=== PATIENT | male | born 1990 | race Caucasian/White ===

== ENCOUNTER 2017-08-19 14:17 | Emergency (ER) | payer OTHER ==
[~2017-08-19] VITALS: Ht 175.2 cm; Wt 63.5 kg
[2017-08-19] MEDS ORDERED: MEDROL DOSEPAK4 MG PO (16:02)
[2017-08-19] MEDS ORDERED: CYCLOBENZAPRINE5 M3 PO (16:02)
== END 2017-08-19 16:15 | disposition home or self-care (01) ==
LOC: ED 14:17
DX: M62.830 Muscle spasm of back (principal)

== ENCOUNTER 2018-01-05 11:46 | Emergency (ER) | payer SELFPAY ==
[~2018-01-05] VITALS: Ht 177.8 cm; Wt 70.8 kg
[~2018-01-05 11:46] MED LIST: CYCLOBENZAPRINE5 M3 PO; MEDROL DOSEPAK4 MG PO
[2018-01-05] MEDS ORDERED: ZYRTEC10 MG PO (12:31)
[2018-01-05] MEDS ORDERED: AMOXICILLIN500 M2 PO (12:31)
[2018-01-05] MEDS ORDERED: FLONASE ALLERG9.9 ML NAS (12:31)
== END 2018-01-05 12:47 | disposition home or self-care (01) ==
LOC: ED 11:46
DX: J01.90 Acute sinusitis, unspecified (principal); Z88.6 Allergy status to analgesic agent

== ENCOUNTER 2018-05-14 08:44 | Emergency (ER) | payer SELFPAY ==
[~2018-05-14] VITALS: Ht 170.1 cm; Wt 67.6 kg
[~2018-05-14 08:44] MED LIST changes: +AMOXICILLIN500 M2 PO; +FLONASE ALLERG9.9 ML NAS; +ZYRTEC10 MG PO
[2018-05-14 09:15] LABS: BILIRUBIN NEGATIVE (NEGATIVE); BLOOD NEGATIVE (NEGATIVE); CLARITY CLEAR (CLEAR); COLOR YELLOW (YELLOW); GLUCOSE NEGATIVE (NEGATIVE); KETONE NEGATIVE (NEGATIVE); LEUKO ESTERASE NEGATIVE (NEGATIVE); NITRITE NEGATIVE (NEGATIVE); UROBILINOGEN 0.2 E.U./dl (0.2-1.0)
[2018-05-14 09:16] LABS: BASO # 0.1 10*3/uL (0.0-0.1); EOS # 0.6 10*3/uL (0.0-0.4); EOS % 11.1 % (1.0-4.0); HEMATOCRIT 44.5 % (42.0-52.0); LYMPH # 1.5 10*3/uL (1.3-4.4); LYMPH % 29.8 % (27.0-41.0); MEAN CELL VOLUME 93.7 fl (80.0-94.0); MEAN CORPUSCULAR HGB 31.6 pg (27.0-31.0); MEAN CORPUSCULAR HGB CONC 33.7 g/dl (33.0-37.0); MONO # 0.4 10*3/uL (0.1-1.0); MONO % 7.9 % (3.0-9.0); NEUT # 2.5 10*3/uL (2.3-7.9); PLATELET COUNT AUTOMATED 190 10*3/uL (130-400); RED BLOOD COUNT 4.75 10*6/uL (4.50-5.90); RED CELL DISTRI WIDTH 12.4 % (0-14.5); WHITE BLOOD COUNT 5.1 10*3/uL (4.8-10.8)
[2018-05-14 09:39] LABS: CHLORIDE 110 mmol/L (98-107); POTASSIUM 4.4 mmol/L (3.5-5.1); SODIUM 143 mmol/L (136-145)
[2018-05-14 09:53] LABS: ALBUMIN 3.7 gm/dl (3.1-4.5); ALKALINE PHOSPHATASE 79 U/L (45-117); BUN 9 mg/dl (7-24); CREATININE 0.96 mg/dL (0.70-1.30); SGOT/AST 12 IU/L (3-35); SGPT/ALT 19 U/L (12-78); TOTAL PROTEIN 6.8 gm/dL (6.4-8.2)
[2018-05-17 17:04] LABS: GONOCOCCUS BY NAA Negative (Negative)
== END 2018-05-14 11:20 | disposition home or self-care (01) ==
LOC: ED 08:44
PROVIDERS: Internal Medicine; Nurse Practitioner Family
DX: R30.0 Dysuria (principal); R10.9 Unspecified abdominal pain; R31.9 Hematuria, unspecified; F17.200 Nicotine dependence, unspecified, uncomplicated; Z88.6 Allergy status to analgesic agent